=== PATIENT | female | born 1950 | race Caucasian/White ===

== ENCOUNTER 2019-09-15 10:25 | Day surgery (SDC) | payer MEDICARE, OTHER ==
[2019-09-15] MEDS ORDERED: Midazolam* 1 MG/ML 2 ML VIAL (2 MG) ONE ×2 (11:51→12:14)
[2019-09-15 12:37] VITALS: BP 155/71
[2019-09-15] MEDS ORDERED: Phenylephrine OPHTH SOL 2.5%* 2 ML ONE (14:10)
[2019-09-15] MEDS ORDERED: Ketorolac 0.5% OPHTH (NF) 0.5 % 5 ML BTL ONE (14:10)
[2019-09-15] MEDS ORDERED: Tropicamide 1% OPTH.SOL* BTL ONE (14:10)
[2019-09-15] MEDS ORDERED: Lidocaine 1% MPF ** 5 ML VIAL ONE (14:10)
[2019-09-15] MEDS ORDERED: Tetracaine 0.5% OPTH.SOL 4 ML* 1 DROP BTL ONE (14:10)
[2019-09-15] MEDS ORDERED: Neomycin/Polymy/Dex OPHTH.OIN* 3.5 GM ONE (14:10)
[2019-09-15] MEDS ORDERED: Cyclopentolate 1% OPTH.SOL* 2 ML BTL ONE (14:10)
[2019-09-15] MEDS ORDERED: Phenylephr/Ketorolac 1%/0.3% OPH DROP BTL ONE (15:47)
--- NOTE | 2019-09-15 16:18 | OP ---
DATE OF OPERATION: 09/15/19 [facility] DATE OF : 46 SURGEON: Dr. Bautista Noguera. IT SYSTEMS ENGINEER: None. ANESTHESIA: Topical with intravenous sedation. PRE-OP DIAGNOSIS: Cataract, right eye. POST-OP DIAGNOSIS: Cataract, right eye. OPERATIVE PROCEDURE: Phacoemulsification and cataract extraction with posterior chamber intraocular lens implant, right eye. COMPLICATIONS: None. BLOOD LOSS: None. DESCRIPTION OF PROCEDURE: The patient was brought to the operating room and received a small amount of intravenous sedation. A drop of Tetracaine was placed in her right eye. She was prepped and draped in the usual sterile fashion for ophthalmic surgery and attention was directed to the right eye where a speculum was placed. A paracentesis was created at the 11 o'clock position and 0.1 cc of 1 percent preservative-free Lidocaine was injected into the anterior chamber followed by DisCoVisc. The eye was digitally stabilized while a 2.75 mm keratome was used to create a triplanar clear corneal incision at the 9 o'clock position. A continuous curvilinear capsulorrhexis was created with a cystotome and Utrata forceps. BSS on a cannula was used to hydrodissect the lens from the capsule. Phacoemulsification was performed in a divide-and- conquer technique to create four fragments which were removed. Residual cortical material was removed with irrigation and aspiration. DisCoVisc was used to inflate the capsular bag and an AU00T0 20.5 diopter lens was folded and inserted into the capsular bag. DisCoVisc was removed using irrigation and aspiration. BSS on a cannula was used to hydrate the corneal stroma and seal the wound. At the end of the case the pupil was round and the lens was centered. The eye was of normal pressure and the wound was water tight. The speculum was removed and topical Maxitrol ointment was placed on the surface of the eye. The eye was closed, patched and shielded and the patient was sent to the recovery room in stable condition with post operative instructions and follow-up appointment given. [id number]/[facility] #: [id number] ESTUARDO
== END 2019-09-15 12:50 | disposition home or self-care (01) ==
LOC: OREAST 10:25
PROVIDERS: ATTEND Ophthalmology
DX: H25.11 Age-related nuclear cataract, right eye (principal); Z88.0 Allergy status to penicillin; I10 Essential (primary) hypertension
CPT/HCPCS: A9270-GY; J1097; J2250; V2632

== ENCOUNTER 2019-09-22 08:43 | Day surgery (SDC) | payer MEDICARE, OTHER ==
[~2019-09-22 08:43] MED LIST: Acetaminophen TAB* 325 MG PO PRN; Buffered Lidocaine 1% SYRIN* 1 ML/SYRINGE INTRADERM ONE
[2019-09-22] MEDS ORDERED: fentaNYL* 50 MCG/ML 2 ML VIAL (100 MCG VIAL) ONE (09:31)
[2019-09-22] MEDS ORDERED: Midazolam* 1 MG/ML 2 ML VIAL (2 MG) ONE (09:32)
[2019-09-22] MEDS ORDERED: Phenylephrine OPHTH SOL 2.5%* 2 ML ONE (09:33)
[2019-09-22] MEDS ORDERED: Neomycin/Polymy/Dex OPHTH.OIN* 3.5 GM ONE (09:33)
[2019-09-22] MEDS ORDERED: Tropicamide 1% OPTH.SOL* BTL ONE (09:33)
[2019-09-22] MEDS ORDERED: Tetracaine 0.5% OPTH.SOL 4 ML* 1 DROP BTL ONE (09:33)
[2019-09-22] MEDS ORDERED: Cyclopentolate 1% OPTH.SOL* 2 ML BTL ONE (09:33)
[2019-09-22] MEDS ORDERED: Lidocaine 1% MPF ** 5 ML VIAL ONE (09:33)
[2019-09-22] MEDS ORDERED: Ketorolac 0.5% OPHTH (NF) 0.5 % 5 ML BTL ONE (09:34)
[2019-09-22] MEDS ORDERED: Propofol* 10 MG/ML 20 ML BTL ONE (10:08)
[2019-09-22 10:27] VITALS: BP 137/68
[2019-09-22] MEDS ORDERED: Phenylephr/Ketorolac 1%/0.3% OPH DROP BTL ONE (10:48)
--- NOTE | 2019-09-23 00:09 | OP ---
DATE OF OPERATION: 09/22/19 - [facility] DATE OF : 46 SURGEON: Bautista Noguera MD [facility] WORKER: None. ANESTHESIA: Topical with intravenous sedation. PRE-OP DIAGNOSIS: Cataract, left eye with small pupil. POST-OP DIAGNOSIS: Cataract, left eye with small pupil. OPERATIVE PROCEDURE: Phacoemulsification and cataract extraction with posterior chamber intraocular lens implant, left eye. COMPLICATIONS: None. BLOOD LOSS: None. DESCRIPTION OF PROCEDURE: The patient was brought to the operating room and received intravenous sedation. A drop of tetracaine was placed in her left eye. The patient was prepped and draped in the usual sterile fashion for ophthalmic surgery and attention was directed to the left eye where a speculum was placed. It was noted that, despite preoperative dilating drops, her pupil measured approximately 3 mm in diameter. A paracentesis was created at the 5 o'clock position and 0.1 cc of 1 % preservative-free lidocaine was injected into the anterior chamber followed by DisCoVisc. This failed to enlarge the pupil size. The eye was digitally stabilized while a 2.75-mm keratome was used to create a triplanar clear corneal incision at the 3 o'clock position. A Malyugin ring was inserted into the eye to capture the iris border in 4 quadrants. A continuous curvilinear capsulorrhexis was created with a cystotome and Utrata forceps. BSS on a cannula was used to hydrodissect the lens from the capsule. Omidria was added into the irrigating solution. Phacoemulsification was performed in a divide-and - conquer technique to create 4 fragments, which were removed. Residual cortical material was removed with irrigation and aspiration. DisCoVisc was used to inflate the capsular bag. An AU00T0 21.0 diopter lens was inserted into the capsular bag. DisCoVisc was removed from posterior to the lens. Supplemental DisCoVisc was added anterior to the lens. The Malyugin ring was atraumatically removed. The remainder of the DisCoVisc was removed using irrigation and aspiration. BSS on a cannula was used to hydrate the wound and seal the wound. At the end of the case, the pupil was round and measured approximately 3 mm. The eye pressure appeared normal and the wound was watertight. The lens was centered and stable. Topical Maxitrol ointment was placed on the surface of the eye after the speculum was removed. The eye was closed, patched and shielded and the patient was sent to the recovery room in stable condition with postop instructions and followup appointment given. [id number]/[facility] #: [id number] ESTUARDO
== END 2019-09-22 10:45 | disposition home or self-care (01) ==
LOC: OREAST 08:43
PROVIDERS: ATTEND Ophthalmology
DX: H25.12 Age-related nuclear cataract, left eye (principal); Q13.2 Other congenital malformations of iris; Z88.0 Allergy status to penicillin; I10 Essential (primary) hypertension; F41.9 Anxiety disorder, unspecified; B19.20 Unspecified viral hepatitis C without hepatic coma; F17.210 Nicotine dependence, cigarettes, uncomplicated
CPT/HCPCS: A9270-GY; J1097; J2250; J2704; J3010; V2632

== ENCOUNTER 2023-12-28 07:15 | Observation (INO) ==
[2023-12-28 08:19] LABS: ABS Basophils 0.1 10^3/uL (0.0-0.1); ABS Eosinophils 0.1 10^3/uL (0.0-0.5); ABS Lymphocytes 1.4 10^3/uL (1.0-4.8); ABS Monocytes 1.1 10^3/uL (0.0-0.9); ABS Neutrophils 9.7 10^3/uL (1.5-7.6); ABS Nucleated RBC 0.01 10^3/ul; Eosinophil % 1.1 %; Hematocrit 33.3 % (35-45); Hemoglobin 10.6 g/dL (11.5-14.3); Lymphocyte % 11.6 %; Mean Corpuscular Hemoglobin 25.9 pg (27-33); Mean Corpuscular Hgb Conc 31.8 g/dL (31-36); Mean Corpuscular Volume 81.2 fL (80-97); Mean Platelet Volume 7.6 fL (7.5-11.2); Platelet Count 364 10^3/uL (150-450); Red Cell Distribution Width 17.1 % (12-17); White Blood Count 12.5 10^3/uL (3.8-11.8)
[2023-12-28 08:41] LABS: Activated Partial Thrombo Time 31.6 seconds (26.0-38.0); INR 1.1 (0.83-1.13)
[2023-12-28 08:43] LABS: High Sens Troponin Baseline 11 pg/mL (<15)
[2023-12-28 08:45] LABS: ALT 10 U/L (7-52); AST 17 U/L (13-39); Albumin 3.9 g/dL (3.2-5.2); Alkaline Phosphatase 94 U/L (35-149); Anion Gap 11 mmol/L (2-16); Blood Urea Nitrogen 9 mg/dL (6-24); CO2 Carbon Dioxide 27 mmol/L (22-32); Chloride 99 mmol/L (101-111); Creatinine, Serum 0.82 mg/dL (0.51-0.95); Glucose 94 mg/dL (70-100); Potassium 3.7 mmol/L (3.5-5.0); Sodium 137 mmol/L (135-145); Total Bilirubin 0.7 mg/dL (0.2-1.0); Total Protein 7.9 g/dL (6.4-8.9); eGFR CKD-EPI 74.5 (>60)
[2023-12-28 08:47] LABS: Urine Appearance Clear; Urine Bilirubin Negative (Negative); Urine Blood Negative (Negative); Urine Color Colorless; Urine Glucose Negative (Negative); Urine Ketones Negative (Negative); Urine Nitrite Negative (Negative); Urine Protein 1+ (>=30 mg/dL) (Negative); Urine Specific Gravity 1.009 (1.002-1.030); Urine Urobilinogen Negative (Negative); Urine pH 7.5 (5.0-8.0)
[2023-12-28 08:50] LABS: Urine Bacteria Absent /HPF (Absent); Urine Red Blood Cell Absent /HPF (0-Trace); Urine Squamous Epithelial Cell Present /HPF (Absent); Urine White Blood Cell Absent /HPF (0-Trace)
[2023-12-28 08:59] LABS: TSH Ultra Thyroid Stim Horm 0.66 mcIU/mL (0.34-5.60)
[2023-12-28] MEDS: Furosemide 40 mg/4 ml IV VIAL IV SLOW PU ONE (09:40)
[2023-12-28 10:18] LABS: High Sensitivity Troponin 1 Hr 9 pg/mL (<15)
[2023-12-28 12:32] LABS: % Iron Saturation 6 % (15-55); .Transferrin 259 mg/dL (203-362); Iron < 20 ug/dL (50-212); Magnesium 1.8 mg/dL (1.9-2.7); Total Iron Binding Capacity 363 mcg/dL (250-450); Unsaturated Iron Binding 343 ug/dL
[2023-12-28 12:53] LABS: Ferritin 13.3 ng/mL (11-307)
[2023-12-28 12:58] LABS: Vitamin B12 548 pg/mL (180-914)
[2023-12-28] MEDS: Labetalol IV 5 MG/ML 20 ml VIAL IV PUSH ONE (13:07)
[2023-12-28] MEDS ORDERED: Levalbuterol HFA INHALER MDI INH PRN (15:49)
[2023-12-28] MEDS: Potassium Chlor 20 meq TAB.ER PO ONE (16:48)
[2023-12-28] MEDS: Magnesium Sulfate 2 gm BAG 2 GM/50 ML BAG IVPB ONE (16:48)
[2023-12-28] MEDS: Enoxaparin 40 MG/0.4 ML SYR SUBCUT SCH ×2 (16:54→21:44)
[2023-12-28] MEDS: Ferric Gluconate IV 250 MG in NS 0.9% 250 ml 200 ML IVPB SCH (18:26)
[2023-12-29 06:04] LABS: ABS Basophils 0.1 10^3/uL (0.0-0.1); ABS Eosinophils 0.2 10^3/uL (0.0-0.5); ABS Lymphocytes 1.6 10^3/uL (1.0-4.8); ABS Monocytes 0.9 10^3/uL (0.0-0.9); ABS Neutrophils 5.8 10^3/uL (1.5-7.6); Eosinophil % 2.8 %; Hemoglobin 9.2 g/dL (11.5-14.3); Lymphocyte % 18.3 %; Mean Corpuscular Hemoglobin 26.5 pg (27-33); Mean Corpuscular Hgb Conc 32.8 g/dL (31-36); Mean Corpuscular Volume 80.9 fL (80-97); Mean Platelet Volume 7.6 fL (7.5-11.2); Platelet Count 299 10^3/uL (150-450); Red Blood Count 3.46 10^6/uL (3.63-4.92); Red Cell Distribution Width 17.4 % (12-17); White Blood Count 8.6 10^3/uL (3.8-11.8)
[2023-12-29 06:27] LABS: Calcium 8.2 mg/dL (8.6-10.3); Creatinine, Serum 0.88 mg/dL (0.51-0.95); Magnesium 2.2 mg/dL (1.9-2.7); Potassium 3.6 mmol/L (3.5-5.0); eGFR CKD-EPI 68.5 (>60)
[2023-12-29] MEDS: CMC:FLUTICAS/UMECLI/VILANT 200-62.5-25 MDI (NF) INH SCH (07:50)
[2023-12-29] MEDS: Levetiracetam XR 500 MG TAB.XR PO SCH (09:05)
[2023-12-29] MEDS: Potassium Chlor 20 meq TAB.ER PO ONE (09:05)
[2023-12-30 09:25] VITALS: BP 125/57
== END 2023-12-30 14:07 | disposition home or self-care (01) ==
LOC: EDHOLD 07:15 → ED 07:15 → MEDTELE 12:20
PROVIDERS: ADMIT Student in an Organized Health Care Education/Training Program; ATTEND Student in an Organized Health Care Education/Training Program

== ENCOUNTER 2024-01-16 11:09 | Inpatient (IN) ==
[2024-01-16 11:46] LABS: ABS Basophils 0.1 10^3/uL (0.0-0.1); ABS Eosinophils 0.1 10^3/uL (0.0-0.5); ABS Lymphocytes 1.1 10^3/uL (1.0-4.8); ABS Monocytes 0.9 10^3/uL (0.0-0.9); ABS Neutrophils 9.5 10^3/uL (1.5-7.6); ABS Nucleated RBC 0.01 10^3/ul; Eosinophil % 0.9 %; Hematocrit 41.3 % (35-45); Hemoglobin 13.4 g/dL (11.5-14.3); Lymphocyte % 9.5 %; Mean Corpuscular Hemoglobin 26.8 pg (27-33); Mean Corpuscular Hgb Conc 32.3 g/dL (31-36); Mean Corpuscular Volume 82.8 fL (80-97); Mean Platelet Volume 7.9 fL (7.5-11.2); Platelet Count 284 10^3/uL (150-450); Red Blood Count 4.99 10^6/uL (3.63-4.92); Red Cell Distribution Width 20.7 % (12-17); White Blood Count 11.8 10^3/uL (3.8-11.8)
[2024-01-16] MEDS: Labetalol IV 5 MG/ML 20 ml VIAL IV PUSH ONE ×3 (11:57→18:38)
[2024-01-16] MEDS: NS 0.9% 1000 ml BAG 1,000 ML IV ONE (12:29)
[2024-01-16] MEDS: Acetaminophen IV 1 GM/100ML 1,000 MG/100 ML BAG IV ONE (12:29)
[2024-01-16 12:50] LABS: Albumin 4.1 g/dL (3.2-5.2); Albumin/Globulin Ratio 1.2 (1-3); Creatinine, Serum 0.77 mg/dL (0.51-0.95); Globulin 3.5 g/dL (2-4); Magnesium 1.6 mg/dL (1.9-2.7); Potassium 3.3 mmol/L (3.5-5.0); Total Protein 7.6 g/dL (6.4-8.9); eGFR CKD-EPI 80.4 (>60)
[2024-01-16 13:08] LABS: INR 1.13 (0.83-1.13)
[2024-01-16] MEDS: Magnesium Sulfate 2 gm BAG 2 GM/50 ML BAG IVPB ONE (13:20)
[2024-01-16] MEDS: Potassium Chlor 20 meq TAB.ER PO ONE (13:20)
[2024-01-16] MEDS: Levetiracetam XR 500 MG TAB.XR PO ONE (13:53)
[2024-01-16 14:08] LABS: Urine Appearance Clear; Urine Bilirubin Negative (Negative); Urine Blood Negative (Negative); Urine Color Light-Yellow; Urine Glucose Negative (Negative); Urine Ketones 1+ (Negative); Urine Nitrite Negative (Negative); Urine Protein 2+ (>=100 mg/dL) (Negative); Urine Specific Gravity 1.012 (1.002-1.030); Urine Urobilinogen Negative (Negative); Urine pH 6.5 (5.0-8.0)
[2024-01-16 14:15] LABS: Urine Bacteria 2+ /HPF (Absent); Urine Red Blood Cell Trace(0-2/hpf) /HPF (0-Trace); Urine White Blood Cell Trace(0-5/hpf) /HPF (0-Trace)
[2024-01-16 15:01] LABS: High Sensitivity Troponin 1 Hr 13 pg/mL (<15)
[2024-01-16] MEDS: Metoprolol Tartrate 5 mg VIAL 5 ml VIAL (1 mg/ml) IV ONE (18:05)
[2024-01-16] MEDS ORDERED: Levalbuterol HFA INHALER MDI INH PRN (20:22)
[2024-01-16] MEDS ORDERED: Labetalol IV 5 MG/ML 20 ml VIAL IV PUSH PRN (20:22)
[2024-01-16] MEDS: Enoxaparin 40 MG/0.4 ML SYR SUBCUT SCH (21:48)
[2024-01-16] MEDS: Lactated Ringers 1000 ml BAG 1,000 ML IV ONE (22:40)
[2024-01-16] MEDS ORDERED: Norepinephrine 4 MG/250mL D5W 4,000 MCG/250 ML BAG IV SCH (23:00)
[2024-01-16] MEDS: Phenylephrine 40 mcg/mL 10mL (400mcg) SYRINGE ONE (23:41)
[2024-01-16] MEDS: Norepinephrine 4 MG/250mL D5W 4,000 MCG/250 ML BAG IV ONE (23:41)
[2024-01-17] MEDS: Lactated Ringers 1000 ml BAG 1,000 ML IV SCH (00:28)
[2024-01-17] MEDS: Lactated Ringers 1000 ml BAG 1,000 ML IV ONE (00:38)
[2024-01-17] MEDS: Norepinephrine 4 MG/250mL D5W 4,000 MCG/250 ML BAG IV SCH ×2 (01:12→03:09)
[2024-01-17 05:38] LABS: ABS Basophils 0.1 10^3/uL (0.0-0.1); ABS Eosinophils 0.4 10^3/uL (0.0-0.5); ABS Lymphocytes 1.7 10^3/uL (1.0-4.8); ABS Neutrophils 7.6 10^3/uL (1.5-7.6); ABS Nucleated RBC 0.01 10^3/ul; Hematocrit 31.2 % (35-45); Hemoglobin 10.3 g/dL (11.5-14.3); Lymphocyte % 15.7 %; Mean Corpuscular Hemoglobin 27.3 pg (27-33); Mean Corpuscular Hgb Conc 32.9 g/dL (31-36); Mean Platelet Volume 7.9 fL (7.5-11.2); Nucleated Red Blood Cells % 0.1 %/100WBC (0.0-0.8); Platelet Count 269 10^3/uL (150-450); Red Blood Count 3.76 10^6/uL (3.63-4.92); White Blood Count 10.8 10^3/uL (3.8-11.8)
[2024-01-17 06:29] LABS: ALT 27 U/L (7-52); AST 28 U/L (13-39); Albumin 3.1 g/dL (3.2-5.2); Albumin/Globulin Ratio 1.3 (1-3); Alkaline Phosphatase 71 U/L (35-149); Anion Gap 6 mmol/L (2-16); Blood Urea Nitrogen 7 mg/dL (6-24); CO2 Carbon Dioxide 28 mmol/L (22-32); Calcium 8.2 mg/dL (8.6-10.3); Chloride 99 mmol/L (101-111); Globulin 2.3 g/dL (2-4); Glucose 108 mg/dL (70-100); Potassium 3.5 mmol/L (3.5-5.0); Sodium 133 mmol/L (135-145); Total Bilirubin 0.7 mg/dL (0.2-1.0); Total Protein 5.4 g/dL (6.4-8.9); eGFR CKD-EPI 76.8 (>60)
[2024-01-17] MEDS: Levetiracetam XR 500 MG TAB.XR PO SCH (09:33)
[2024-01-17] MEDS: NF: BUDESONIDE/GLYCOPYR/FORMOTEROL MDI (NF) INH SCH (12:37)
[2024-01-17 16:07] LABS: TSH Ultra Thyroid Stim Horm 0.68 mcIU/mL (0.34-5.60)
[2024-01-17 16:16] LABS: Folate > 20.00 ng/mL (5.90-24.80)
[2024-01-17 16:19] LABS: Vitamin B12 518 pg/mL (180-914)
[2024-01-17] MEDS: Benzocaine/Menthol LOZ PO PRN (19:59)
[2024-01-18 10:13] LABS: ABS Basophils 0.1 10^3/uL (0.0-0.1); ABS Eosinophils 0.4 10^3/uL (0.0-0.5); ABS Lymphocytes 1.2 10^3/uL (1.0-4.8); ABS Monocytes 1.3 10^3/uL (0.0-0.9); ABS Neutrophils 5.7 10^3/uL (1.5-7.6); Eosinophil % 4.4 %; Hematocrit 36.5 % (35-45); Hemoglobin 11.8 g/dL (11.5-14.3); Lymphocyte % 13.5 %; Mean Corpuscular Hemoglobin 27.1 pg (27-33); Mean Corpuscular Hgb Conc 32.2 g/dL (31-36); Mean Corpuscular Volume 84.3 fL (80-97); Mean Platelet Volume 8.1 fL (7.5-11.2); Platelet Count 250 10^3/uL (150-450); Red Blood Count 4.33 10^6/uL (3.63-4.92); Red Cell Distribution Width 21.1 % (12-17); White Blood Count 8.6 10^3/uL (3.8-11.8)
[2024-01-18 11:03] LABS: ALT 25 U/L (7-52); Albumin 3.2 g/dL (3.2-5.2); Albumin/Globulin Ratio 1.1 (1-3); Alkaline Phosphatase 79 U/L (35-149); Anion Gap 5 mmol/L (2-16); Blood Urea Nitrogen 7 mg/dL (6-24); CO2 Carbon Dioxide 30 mmol/L (22-32); Calcium 8.3 mg/dL (8.6-10.3); Chloride 103 mmol/L (101-111); Creatinine, Serum 0.83 mg/dL (0.51-0.95); Globulin 2.9 g/dL (2-4); Glucose 94 mg/dL (70-100); Sodium 138 mmol/L (135-145); Total Bilirubin 0.8 mg/dL (0.2-1.0); Total Protein 6.1 g/dL (6.4-8.9); eGFR CKD-EPI 73.5 (>60)
[2024-01-18 22:54] LABS: Potassium Redraw 3.4 mmol/L (3.5-5.0)
[2024-01-19] MEDS: Metoprolol Tartrate 5 mg VIAL 5 ml VIAL (1 mg/ml) IV ONE (01:11)
[2024-01-19] MEDS: Potassium Chlor 20 meq TAB.ER PO ONE (02:22)
[2024-01-19] MEDS: Digoxin IV 0.5 MG/2 ML AMP (0.25 MG/ML) IV SLOW PU ONE (02:23)
[2024-01-19 02:31] LABS: High Sensitivity Troponin 1 Hr 10 pg/mL (<15)
[2024-01-19] MEDS: KCL 20 MEQ/100 ML IVPREMIX 20 MEQ/100 ML BAG IV ONE (02:50)
[2024-01-19 09:09] LABS: ABS Basophils 0.1 10^3/uL (0.0-0.1); ABS Eosinophils 0.5 10^3/uL (0.0-0.5); ABS Lymphocytes 1.4 10^3/uL (1.0-4.8); ABS Monocytes 0.9 10^3/uL (0.0-0.9); ABS Neutrophils 5.1 10^3/uL (1.5-7.6); ABS Nucleated RBC 0.01 10^3/ul; Eosinophil % 5.7 %; Hematocrit 35.7 % (35-45); Hemoglobin 11.6 g/dL (11.5-14.3); Lymphocyte % 17.7 %; Mean Corpuscular Hemoglobin 27.3 pg (27-33); Mean Corpuscular Hgb Conc 32.6 g/dL (31-36); Mean Corpuscular Volume 83.8 fL (80-97); Mean Platelet Volume 8.8 fL (7.5-11.2); Nucleated Red Blood Cells % 0.1 %/100WBC (0.0-0.8); Platelet Count 216 10^3/uL (150-450); Red Blood Count 4.27 10^6/uL (3.63-4.92); Red Cell Distribution Width 21.4 % (12-17)
[2024-01-19 09:40] LABS: Calcium 8.3 mg/dL (8.6-10.3); Creatinine, Serum 0.83 mg/dL (0.51-0.95); Magnesium 1.9 mg/dL (1.9-2.7); Potassium 4.7 mmol/L (3.5-5.0); eGFR CKD-EPI 73.5 (>60)
[2024-01-19] MEDS: Magnesium Sulfate IV 1GM/100ML 1 GM/100 ML BAG IV ONE (21:15)
[2024-01-20 05:21] LABS: ABS Basophils 0.1 10^3/uL (0.0-0.1); ABS Eosinophils 0.5 10^3/uL (0.0-0.5); ABS Neutrophils 6.7 10^3/uL (1.5-7.6); ABS Nucleated RBC 0.01 10^3/ul; Eosinophil % 4.9 %; Hematocrit 36.8 % (35-45); Hemoglobin 11.8 g/dL (11.5-14.3); Lymphocyte % 19.3 %; Mean Corpuscular Hemoglobin 26.8 pg (27-33); Mean Corpuscular Volume 83.9 fL (80-97); Mean Platelet Volume 8.4 fL (7.5-11.2); Nucleated Red Blood Cells % 0.1 %/100WBC (0.0-0.8); Platelet Count 220 10^3/uL (150-450); Red Blood Count 4.38 10^6/uL (3.63-4.92); Red Cell Distribution Width 21.5 % (12-17); White Blood Count 10.2 10^3/uL (3.8-11.8)
[2024-01-20 05:37] LABS: Calcium 8.1 mg/dL (8.6-10.3); Creatinine, Serum 0.84 mg/dL (0.51-0.95); Magnesium 2.2 mg/dL (1.9-2.7); Potassium 4.2 mmol/L (3.5-5.0); eGFR CKD-EPI 72.4 (>60)
[2024-01-20] MEDS: hydrALAZINE 20 mg/ml 1 ML Vial IV IV SLOW PU PRN (06:39)
[2024-01-20] MEDS ORDERED: hydrALAZINE 20 mg/ml 1 ML Vial IV IV SLOW PU PRN (07:34)
[2024-01-20] MEDS ORDERED: CMC:FLUTICAS/UMECLI/VILANT 100-62.5-25 MDI (NF) INH SCH (11:00)
[2024-01-20] MEDS: CMC:FLUTICAS/UMECLI/VILANT 100-62.5-25 MDI (NF) INH SCH (16:42)
[2024-01-20] MEDS: Metoprolol Tartrate 5 mg VIAL 5 ml VIAL (1 mg/ml) IV PRN (17:37)
[2024-01-24 06:36] LABS: ABS Basophils 0.1 10^3/uL (0.0-0.1); ABS Eosinophils 0.5 10^3/uL (0.0-0.5); ABS Lymphocytes 1.5 10^3/uL (1.0-4.8); ABS Monocytes 0.9 10^3/uL (0.0-0.9); ABS Neutrophils 5.3 10^3/uL (1.5-7.6); ABS Nucleated RBC 0.01 10^3/ul; Eosinophil % 5.5 %; Hematocrit 32.7 % (35-45); Hemoglobin 10.8 g/dL (11.5-14.3); Lymphocyte % 18.4 %; Mean Corpuscular Hemoglobin 27.3 pg (27-33); Mean Corpuscular Hgb Conc 32.9 g/dL (31-36); Mean Corpuscular Volume 82.9 fL (80-97); Nucleated Red Blood Cells % 0.1 %/100WBC (0.0-0.8); Platelet Count 230 10^3/uL (150-450); Red Blood Count 3.95 10^6/uL (3.63-4.92); White Blood Count 8.2 10^3/uL (3.8-11.8)
[2024-01-24 06:50] LABS: Calcium 8.1 mg/dL (8.6-10.3); Creatinine, Serum 0.77 mg/dL (0.51-0.95); Potassium 3.8 mmol/L (3.5-5.0); eGFR CKD-EPI 80.4 (>60)
[2024-01-25 06:51] LABS: ABS Basophils 0.1 10^3/uL (0.0-0.1); ABS Eosinophils 0.5 10^3/uL (0.0-0.5); ABS Lymphocytes 1.7 10^3/uL (1.0-4.8); ABS Monocytes 1.2 10^3/uL (0.0-0.9); ABS Neutrophils 7.5 10^3/uL (1.5-7.6); Eosinophil % 4.3 %; Hematocrit 34.7 % (35-45); Hemoglobin 11.2 g/dL (11.5-14.3); Lymphocyte % 15.5 %; Mean Corpuscular Hemoglobin 27.3 pg (27-33); Mean Corpuscular Hgb Conc 32.3 g/dL (31-36); Mean Corpuscular Volume 84.3 fL (80-97); Mean Platelet Volume 7.8 fL (7.5-11.2); Platelet Count 249 10^3/uL (150-450); Red Blood Count 4.12 10^6/uL (3.63-4.92); Red Cell Distribution Width 21.5 % (12-17); White Blood Count 10.9 10^3/uL (3.8-11.8)
[2024-01-25] MEDS: Iodixanol 320 (CONTRAST) 100 ML SDV IV ONE (07:35)
[2024-01-27 05:10] VITALS: BP 166/66
== END 2024-01-27 08:33 | DRG 304 ==
LOC: ED 11:09 → EDHOLD 11:09 → MEDTELE 17:56 → ICU 23:01 → SUATTDRO 01-17 08:32 → MEDTELE 01-18 16:13
PROVIDERS: ADMIT Internal Medicine; ATTEND Internal Medicine

== ENCOUNTER 2024-01-23 14:05 | Inpatient (IN) ==
[2024-01-28] MEDS: Aspirin EC 81 mg TAB.EC (enteric coated) PO SCH (07:41)
[2024-01-28] MEDS: FLUTICAS/UMECLI/VILANT 100-62.5-25 MDI (NF) INH SCH (09:44)
[2024-01-28] MEDS: Senna TAB 8.6 mg TAB PO PRN (20:57)
[2024-01-28] MEDS: Magnesium Hydroxide LIQ 30 ML UDC PO PRN (20:59)
[2024-01-29 06:57] LABS: ABS Basophils 0.1 10^3/uL (0.0-0.1); ABS Eosinophils 0.6 10^3/uL (0.0-0.5); ABS Monocytes 0.8 10^3/uL (0.0-0.9); ABS Neutrophils 5.5 10^3/uL (1.5-7.6); Hematocrit 27.8 % (35-45); Hemoglobin 9.2 g/dL (11.5-14.3); Lymphocyte % 21.9 %; Mean Corpuscular Hemoglobin 27.7 pg (27-33); Mean Platelet Volume 7.9 fL (7.5-11.2); Platelet Count 278 10^3/uL (150-450); Red Blood Count 3.32 10^6/uL (3.63-4.92); Red Cell Distribution Width 21.5 % (12-17); White Blood Count 8.9 10^3/uL (3.8-11.8)
[2024-01-29 08:47] LABS: Albumin 2.8 g/dL (3.2-5.2); Albumin/Globulin Ratio 1.1 (1-3); Calcium 8.2 mg/dL (8.6-10.3); Creatinine, Serum 0.87 mg/dL (0.51-0.95); Globulin 2.6 g/dL (2-4); Potassium 4.3 mmol/L (3.5-5.0); Total Bilirubin 0.3 mg/dL (0.2-1.0); Total Protein 5.4 g/dL (6.4-8.9); eGFR CKD-EPI 69.4 (>60)
[2024-01-30 06:56] LABS: ABS Basophils 0.1 10^3/uL (0.0-0.1); ABS Eosinophils 0.7 10^3/uL (0.0-0.5); ABS Lymphocytes 1.8 10^3/uL (1.0-4.8); ABS Monocytes 0.8 10^3/uL (0.0-0.9); ABS Neutrophils 9.6 10^3/uL (1.5-7.6); ABS Nucleated RBC 0.01 10^3/ul; Eosinophil % 5.2 %; Hematocrit 24.1 % (35-45); Hemoglobin 7.9 g/dL (11.5-14.3); Lymphocyte % 13.9 %; Mean Corpuscular Hemoglobin 27.5 pg (27-33); Mean Corpuscular Hgb Conc 32.9 g/dL (31-36); Mean Corpuscular Volume 83.4 fL (80-97); Mean Platelet Volume 7.7 fL (7.5-11.2); Nucleated Red Blood Cells % 0.1 %/100WBC (0.0-0.8); Platelet Count 331 10^3/uL (150-450); Red Blood Count 2.89 10^6/uL (3.63-4.92); Red Cell Distribution Width 21.3 % (12-17)
[2024-01-30] MEDS: D5NS 0.9% 1000 ml BAG 1,000 ML IV SCH (13:48)
[2024-01-30 22:20] LABS: ABS Basophils 0.1 10^3/uL (0.0-0.1); ABS Eosinophils 0.5 10^3/uL (0.0-0.5); ABS Lymphocytes 1.7 10^3/uL (1.0-4.8); ABS Monocytes 0.9 10^3/uL (0.0-0.9); ABS Neutrophils 11.3 10^3/uL (1.5-7.6); Eosinophil % 3.6 %; Hematocrit 24.3 % (35-45); Hemoglobin 7.5 g/dL (11.5-14.3); Lymphocyte % 11.5 %; Mean Corpuscular Hemoglobin 26.9 pg (27-33); Mean Corpuscular Hgb Conc 30.9 g/dL (31-36); Mean Corpuscular Volume 87.1 fL (80-97); Mean Platelet Volume 8.4 fL (7.5-11.2); Platelet Count 324 10^3/uL (150-450); Red Blood Count 2.79 10^6/uL (3.63-4.92); Red Cell Distribution Width 21.5 % (12-17); White Blood Count 14.5 10^3/uL (3.8-11.8)
[2024-01-31 07:13] LABS: ABS Basophils 0.1 10^3/uL (0.0-0.1); ABS Eosinophils 0.5 10^3/uL (0.0-0.5); ABS Lymphocytes 2.3 10^3/uL (1.0-4.8); Eosinophil % 3.6 %; Hematocrit 19.8 % (35-45); Hemoglobin 6.3 g/dL (11.5-14.3); Lymphocyte % 17.9 %; Mean Corpuscular Hemoglobin 27.3 pg (27-33); Mean Corpuscular Hgb Conc 31.9 g/dL (31-36); Mean Corpuscular Volume 85.4 fL (80-97); Mean Platelet Volume 7.8 fL (7.5-11.2); Platelet Count 290 10^3/uL (150-450); Red Blood Count 2.32 10^6/uL (3.63-4.92); Red Cell Distribution Width 21.5 % (12-17); White Blood Count 12.9 10^3/uL (3.8-11.8)
[2024-01-31] MEDS: levETIRAcetam LIQ 500 MG/5 ML UDC PO SCH (12:16)
[2024-01-31] MEDS ORDERED: Midazolam 10 mg/10 ml VIAL 1 mg/ml 10 ml VIAL (10 mg) ONE (13:52)
[2024-01-31] MEDS ORDERED: fentaNYL 100 mcg/2 ml 50 MCG/ML VIAL ONE (13:52)
[2024-01-31] MEDS: Pantoprazole VIAL 40 MG VIAL IV ONE (16:25)
[2024-01-31] MEDS: D5NS 0.9% 1000 ml BAG 1,000 ML IV SCH (16:30)
[2024-01-31 19:25] LABS: ABS Basophils 0.1 10^3/uL (0.0-0.1); ABS Eosinophils 0.4 10^3/uL (0.0-0.5); ABS Lymphocytes 1.1 10^3/uL (1.0-4.8); ABS Monocytes 0.7 10^3/uL (0.0-0.9); ABS Neutrophils 10.3 10^3/uL (1.5-7.6); Eosinophil % 2.9 %; Hematocrit 30.9 % (35-45); Hemoglobin 9.9 g/dL (11.5-14.3); Lymphocyte % 8.9 %; Mean Corpuscular Hemoglobin 27.5 pg (27-33); Mean Corpuscular Hgb Conc 32.2 g/dL (31-36); Mean Corpuscular Volume 85.5 fL (80-97); Mean Platelet Volume 7.4 fL (7.5-11.2); Platelet Count 354 10^3/uL (150-450); Red Blood Count 3.61 10^6/uL (3.63-4.92); Red Cell Distribution Width 18.9 % (12-17); White Blood Count 12.5 10^3/uL (3.8-11.8)
[2024-02-01 06:18] LABS: ABS Basophils 0.1 10^3/uL (0.0-0.1); ABS Eosinophils 0.4 10^3/uL (0.0-0.5); ABS Monocytes 0.8 10^3/uL (0.0-0.9); ABS Neutrophils 10.2 10^3/uL (1.5-7.6); ABS Nucleated RBC 0.01 10^3/ul; Eosinophil % 2.8 %; Hemoglobin 7.9 g/dL (11.5-14.3); Lymphocyte % 14.6 %; Mean Corpuscular Hemoglobin 27.9 pg (27-33); Mean Corpuscular Hgb Conc 32.8 g/dL (31-36); Mean Corpuscular Volume 84.8 fL (80-97); Mean Platelet Volume 7.6 fL (7.5-11.2); Nucleated Red Blood Cells % 0.1 %/100WBC (0.0-0.8); Platelet Count 297 10^3/uL (150-450); Red Blood Count 2.83 10^6/uL (3.63-4.92); Red Cell Distribution Width 19.1 % (12-17); White Blood Count 13.4 10^3/uL (3.8-11.8)
[2024-02-01] MEDS: D5NS 0.9% 1000 ml BAG 1,000 ML IV ONE (16:40)
[2024-02-01] MEDS: cefTRIAXone 1 gm/50 mL D5W 1 GM/50 ML BAG IV SCH (17:48)
[2024-02-02] MEDS: D5W NS IVFLUID 1000 ML IV SCH (08:43)
[2024-02-02 10:40] LABS: ABS Basophils 0.1 10^3/uL (0.0-0.1); ABS Eosinophils 0.5 10^3/uL (0.0-0.5); ABS Lymphocytes 0.8 10^3/uL (1.0-4.8); ABS Monocytes 0.5 10^3/uL (0.0-0.9); ABS Neutrophils 6.2 10^3/uL (1.5-7.6); ABS Nucleated RBC 0.01 10^3/ul; Eosinophil % 6.1 %; Hematocrit 20.6 % (35-45); Hemoglobin 6.9 g/dL (11.5-14.3); Lymphocyte % 9.7 %; Mean Corpuscular Hemoglobin 29.1 pg (27-33); Mean Corpuscular Hgb Conc 33.4 g/dL (31-36); Mean Corpuscular Volume 87.1 fL (80-97); Mean Platelet Volume 7.5 fL (7.5-11.2); Nucleated Red Blood Cells % 0.1 %/100WBC (0.0-0.8); Platelet Count 303 10^3/uL (150-450); Red Blood Count 2.37 10^6/uL (3.63-4.92); Red Cell Distribution Width 19.9 % (12-17)
[2024-02-02] MEDS: PEG 3000 GI LAVAGE 1 GALLON PO ONE (17:46)
[2024-02-03 08:22] LABS: ABS Basophils 0.1 10^3/uL (0.0-0.1); ABS Eosinophils 0.6 10^3/uL (0.0-0.5); ABS Lymphocytes 1.3 10^3/uL (1.0-4.8); ABS Monocytes 0.7 10^3/uL (0.0-0.9); ABS Neutrophils 5.7 10^3/uL (1.5-7.6); Eosinophil % 7.5 %; Hematocrit 31.3 % (35-45); Hemoglobin 10.5 g/dL (11.5-14.3); Lymphocyte % 15.3 %; Mean Corpuscular Hemoglobin 28.6 pg (27-33); Mean Corpuscular Hgb Conc 33.6 g/dL (31-36); Mean Corpuscular Volume 85.1 fL (80-97); Mean Platelet Volume 7.7 fL (7.5-11.2); Platelet Count 376 10^3/uL (150-450); Red Blood Count 3.68 10^6/uL (3.63-4.92); Red Cell Distribution Width 18.9 % (12-17); White Blood Count 8.3 10^3/uL (3.8-11.8)
[2024-02-04 06:59] LABS: ABS Basophils 0.1 10^3/uL (0.0-0.1); ABS Eosinophils 0.6 10^3/uL (0.0-0.5); ABS Lymphocytes 1.1 10^3/uL (1.0-4.8); ABS Monocytes 0.6 10^3/uL (0.0-0.9); ABS Neutrophils 4.9 10^3/uL (1.5-7.6); Eosinophil % 7.5 %; Hematocrit 31.5 % (35-45); Hemoglobin 10.9 g/dL (11.5-14.3); Lymphocyte % 15.6 %; Mean Corpuscular Hemoglobin 29.9 pg (27-33); Mean Corpuscular Hgb Conc 34.7 g/dL (31-36); Mean Platelet Volume 7.5 fL (7.5-11.2); Nucleated Red Blood Cells % 0.1 %/100WBC (0.0-0.8); Platelet Count 369 10^3/uL (150-450); Red Blood Count 3.67 10^6/uL (3.63-4.92); Red Cell Distribution Width 18.4 % (12-17); White Blood Count 7.3 10^3/uL (3.8-11.8)
[2024-02-04 10:40] LABS: Urine Appearance Clear; Urine Bilirubin Negative (Negative); Urine Blood 1+ (Negative); Urine Color Light-Yellow; Urine Glucose 3+ (>=300 mg/dL) (Negative); Urine Ketones Negative (Negative); Urine Nitrite Negative (Negative); Urine Protein Negative (Negative); Urine Urobilinogen Negative (Negative); Urine pH 5.5 (5.0-8.0)
[2024-02-04 10:41] LABS: Urine Bacteria 1+ /HPF (Absent); Urine Red Blood Cell Trace(0-2/hpf) /HPF (0-Trace); Urine Squamous Epithelial Cell Present /HPF (Absent); Urine White Blood Cell 1+(6-10/hpf) /HPF (0-Trace)
[2024-02-05 07:26] LABS: ABS Basophils 0.1 10^3/uL (0.0-0.1); ABS Eosinophils 0.5 10^3/uL (0.0-0.5); ABS Lymphocytes 1.4 10^3/uL (1.0-4.8); ABS Monocytes 0.9 10^3/uL (0.0-0.9); ABS Neutrophils 7.7 10^3/uL (1.5-7.6); ABS Nucleated RBC 0.01 10^3/ul; Hematocrit 29.9 % (35-45); Hemoglobin 10.2 g/dL (11.5-14.3); Lymphocyte % 13.2 %; Mean Corpuscular Hemoglobin 29.2 pg (27-33); Mean Corpuscular Hgb Conc 34.1 g/dL (31-36); Mean Corpuscular Volume 85.7 fL (80-97); Mean Platelet Volume 7.6 fL (7.5-11.2); Nucleated Red Blood Cells % 0.1 %/100WBC (0.0-0.8); Platelet Count 406 10^3/uL (150-450); Red Blood Count 3.49 10^6/uL (3.63-4.92); Red Cell Distribution Width 18.9 % (12-17); White Blood Count 10.7 10^3/uL (3.8-11.8)
[2024-02-05 09:41] LABS: Albumin 2.6 g/dL (3.2-5.2); Albumin/Globulin Ratio 1.1 (1-3); Calcium 7.9 mg/dL (8.6-10.3); Creatinine, Serum 0.78 mg/dL (0.51-0.95); Globulin 2.4 g/dL (2-4); Potassium 3.7 mmol/L (3.5-5.0); Total Bilirubin 0.3 mg/dL (0.2-1.0); eGFR CKD-EPI 79.2 (>60)
[2024-02-06 07:11] VITALS: BP 160/74
== END 2024-02-06 11:00 | disposition home or self-care (01) | DRG 64 ==
LOC: PMRU 01-27 11:02
PROVIDERS: ADMIT Physical Medicine & Rehabilitation; ATTEND Physical Medicine & Rehabilitation